=== PATIENT | male | born 1970 | race Caucasian/White ===

== ENCOUNTER → 2016-10-11 | Outpatient (CLI) | payer OTHER ==
--- NOTE | 2016-10-11 19:09 | Diagnostic Imaging Report ---
INDICATION: Pain to medial side of wrist after wrestling with his son. FINDINGS: There is degenerative osteoarthritic change noted of the radiocarpal joint. Mild subcortical cystic changes noted along the lunate. No fractures are demonstrated. The ulnar styloid is intact. No evidence of osteonecrosis. IMPRESSION: Findings consistent with degenerative osteoarthritis. No acute abnormalities. Dictated by: Dictated on workstation # [id number]
== END ==
LOC: RAD 18:02
PROVIDERS: ATTEND Nurse Practitioner Family
DX: M19.031 Primary osteoarthritis, right wrist (principal)
CPT/HCPCS: 73110